=== PATIENT | female | born 1950 | race American Indian/Alaskan Native ===

== ENCOUNTER 2017-07-26 07:05 | Emergency (ER) | payer MEDICARE ==
[2017-07-26 08:21] LABS: Basophils % (Auto) 0.8 % (0.0-1.8); Eosinophils % (Auto) 0.9 % (0.0-4.3); Hematocrit 44.2 % (30.3-42.9); Hemoglobin 14.6 gm/dl (10.1-14.3); Lymphocytes # (Auto) 0.7 K/mm3 (1.2-5.4); Lymphocytes % (Auto) 13.8 % (13.4-35.0); Mean Corpuscular HGB Conc 33 % (30-34); Mean Corpuscular Hemoglobin 28 pg (28-32); Mean Corpuscular Volume 84 fl (79-97); Monocytes # (Auto) 0.7 K/mm3 (0.0-0.8); Monocytes % (Auto) 13.1 % (0.0-7.3); Platelet Count 156 K/mm3 (140-440); Red Blood Count 5.27 M/mm3 (3.65-5.03); Red Cell Distribution Width 15.7 % (13.2-15.2)
--- NOTE | 2017-07-26 08:30 | XRay Report ---
AP CHEST :07/26/17 07:43:00 CLINICAL: Cough. Upper respiratory infection. COMPARISON:03/11/05 FINDINGS: Stable mild cardiomegaly.Redistribution pulmonary blood flow to the upper lobes. Median sternotomy wires. Mild aortic tortuosity and moderate aortic calcification. The lungs are normally expanded and clear. The bones and soft tissues are normal. IMPRESSION: Mild cardiomegaly and pulmonary venous hypertension. No pulmonary edema and no pneumonia.
[2017-07-26 08:31] LABS: Alanine Aminotransferase 24 units/L (7-56); BUN/Creatinine Ratio 13; Blood Urea Nitrogen 10 mg/dL (7-17); Calcium 8.9 mg/dL (8.4-10.2); Hemolysis Index 9
[2017-07-26] MEDS ORDERED: ZITHROMAX PO ONE (10:36)
[2017-07-26] MEDS ORDERED: TESSALON PERLES PO ONE (10:36)
--- NOTE | 2017-07-26 11:14 | Emergency Department Report ---
- General Chief Complaint: Upper Respiratory Infection Stated Complaint: FAITH Time Seen by Provider: 07/26/17 09:33 Source: EMS Mode of arrival: Stretcher Limitations: No Limitations - History of Present Illness Initial Comments: 67-year-old female with a past medical history CHF, hypertension, aortic valve replacement, currently on Coumadin presents to the hospital complaints of cough 1 week. Cough is nonproductive. Patient complains of anterior chest pain and back pain with coughing episodes. Rated 8/10 in intensity. Patient denies fever, shortness of breath, or worsening leg edema. - Related Data Home Medications Medication Instructions Recorded Confirmed Last Taken Pantoprazole [Protonix TAB] 40 mg PO QDAY 04/29/13 03/10/15 03/10/15 Valsartan [Diovan] 320 mg PO QDAY 03/10/15 03/10/15 03/10/15 Previous Rx's Medication Instructions Recorded Last Taken Type Doxazosin [Cardura] 1 mg PO BID #60 tablet 04/30/13 03/10/15 Rx Warfarin [Coumadin] 7.5 mg PO DAILY@1700 #30 tablet 04/30/13 03/10/15 Rx hydrALAZINE [Apresoline TAB] 25 mg PO Q8HR #90 tablet 03/13/15 Unknown Rx Azithromycin [Zithromax Z-MICHAEL] 1 dose PO DAILY 5 Days tab 07/26/17 Unknown Rx Benzonatate [Tessalon Perles] 100 mg PO Q8HR PRN #30 capsule 07/26/17 Unknown Rx traMADol [Ultram 50 MG tab] 50 mg PO Q6HR PRN #20 tablet 07/26/17 Unknown Rx Allergies Allergy/AdvReac Type Severity Reaction Status Date / Time iodine Allergy Shortness Verified 03/10/15 20:04 of Breath shellfish derived Allergy Swelling Verified 04/29/13 08:55 ED Review of Systems ROS: Stated complaint: FAITH Other details as noted in HPI Comment: All other systems reviewed and negative Other: Constitutional: No fevers chills Eyes: No eye pain visual changes ENT: No ear pain or throat pain Neck: Denies pain Respiratory: Denies cough wheezing Cardiovascular: Denies palpitations, syncope GI: Denies abdominal pain : Denies dysuria Musculoskeletal: Denies back pain, joint swelling Skin: Denies rash, lesions, erythema Neurologic: Denies headache, numbness, weakness Psychiatric: Denies suicidal ideation, hallucinations ED Past Medical Hx - Past Medical History Hx Hypertension: Yes Hx Congestive Heart Failure: Yes Hx Diabetes: No Hx Asthma: No Hx COPD: No - Surgical History Past Surgical History?: Yes Additional Surgical History: aortic valve replacement. hysterectomy - Social History Smoking Status: Never Smoker Substance Use Type: Alcohol - Medications Home Medications: Home Medications Medication Instructions Recorded Confirmed Last Taken Type Pantoprazole [Protonix TAB] 40 mg PO QDAY 04/29/13 03/10/15 03/10/15 History Doxazosin [Cardura] 1 mg PO BID #60 tablet 04/30/13 03/10/15 03/10/15 Rx Warfarin [Coumadin] 7.5 mg PO DAILY@1700 #30 tablet 04/30/13 03/10/15 03/10/15 Rx Valsartan [Diovan] 320 mg PO QDAY 03/10/15 03/10/15 03/10/15 History hydrALAZINE [Apresoline TAB] 25 mg PO Q8HR #90 tablet 03/13/15 Unknown Rx Azithromycin [Zithromax Z-MICHAEL] 1 dose PO DAILY 5 Days tab 07/26/17 Unknown Rx Benzonatate [Tessalon Perles] 100 mg PO Q8HR PRN #30 capsule 07/26/17 Unknown Rx traMADol [Ultram 50 MG tab] 50 mg PO Q6HR PRN #20 tablet 07/26/17 Unknown Rx ED Physical Exam - General Limitations: No Limitations - Other Other exam information: General: No limitations, patient is alert in no acute distress Head exam: Atraumatic, normocephalic Eyes exam: Normal appearance ENT: Moist mucous membrane, normal oropharynx Neck exam: Normal inspection, full range of motion, no meningismus nontender Respiratory exam: Clear to auscultation bilateral, no wheezes, rales, crackles Cardiovascular: Normal rate and rhythm, positive systolic murmur Abdomen: Soft, nondistended, and nontender, with normal bowel sounds, no rebound, or guarding Extremity: Full range of motion normal inspection no deformity, no calf tenderness/edema Back: Normal Inspection, full range of motion, no tenderness Neurologic: Alert, oriented x3, cranial nerves intact, no motor or sensory deficit Psychiatric: normal affect, normal mood Skin: Warm, dry, intact ED Course Vital Signs 07/26/17 07:27 Temperature 98.9 F Pulse Rate 81 Respiratory 22 Rate Blood Pressure 131/76 Blood Pressure 131/76 [Left] O2 Sat by Pulse 100 Oximetry - Reevaluation(s) Reevaluation #1: 07/26/17 11:16 Patient given Tessalon Perles for cough and azithromycin. Declined medication for pain ED Medical Decision Making - Lab Data Result diagrams: 07/26/17 07:49 07/26/17 07:49 Lab Results 07/26/17 07/26/17 Range/Units 07:49 07:49 WBC 5.3 (4.5-11.0) K/mm3 RBC 5.27 H (3.65-5.03) M/mm3 Hgb 14.6 H (10.1-14.3) gm/dl Hct 44.2 H (30.3-42.9) % MCV 84 (79-97) fl MCH 28 (28-32) pg MCHC 33 (30-34) % RDW 15.7 H (13.2-15.2) % Plt Count 156 (140-440) K/mm3 Lymph % (Auto) 13.8 (13.4-35.0) % [place] % (Auto) 13.1 H (0.0-7.3) % Eos % (Auto) 0.9 (0.0-4.3) % Baso % (Auto) 0.8 (0.0-1.8) % Lymph # 0.7 L (1.2-5.4) K/mm3 [place] # 0.7 (0.0-0.8) K/mm3 Eos # 0.0 (0.0-0.4) K/mm3 Baso # 0.0 (0.0-0.1) K/mm3 Seg Neutrophils % 71.4 H (40.0-70.0) % Seg Neutrophils # 3.8 (1.8-7.7) K/mm3 Sodium 141 (137-145) mmol/L Potassium 4.1 (3.6-5.0) mmol/L Chloride 103.4 (98-107) mmol/L Carbon Dioxide 23 (22-30) mmol/L Anion Gap 19 mmol/L BUN 10 (7-17) mg/dL Creatinine 0.8 (0.7-1.2) mg/dL Estimated GFR > 60 ml/min BUN/Creatinine Ratio 13 % Glucose 111 H (65-100) mg/dL Calcium 8.9 (8.4-10.2) mg/dL Total Bilirubin 0.80 (0.1-1.2) mg/dL AST 25 (5-40) units/L ALT 24 (7-56) units/L Alkaline Phosphatase 64 (35-129) units/L Total Protein 6.5 (6.3-8.2) g/dL Albumin 4.0 (3.9-5) g/dL Albumin/Globulin Ratio 1.6 % - EKG Data -: EKG Interpreted by Tx EKG shows normal: sinus rhythm, axis (-60), QRS complexes (156), ST-T waves (no stemi/ LBBB) Rate: normal (62) - EKG Data When compared to previous EKG there are: no significant change - Radiology Data Radiology results: report reviewed (chest x-ray: Mild cardiomegaly and pulmonary venous congestion. No pneumonia) - Medical Decision Making Plan to discharge patient home with antibiotic and symptomatic treatment for bronchitis versus URI - Differential Diagnosis bronchitis, pneumonia, CHF Critical Care Time: No Critical care attestation.: If time is entered above; I have spent that time in minutes in the direct care of this critically ill patient, excluding procedure time. ED Disposition Clinical Impression: Acute bronchitis, Musculoskeletal pain Disposition: DC-01 TO HOME OR SELFCARE Is pt being admited?: No Does the pt Need Aspirin: No Condition: Stable Instructions: Acute Bronchitis (ED) Additional Instructions: Take the medications as prescribed. Return if symptoms worsen. Prescriptions: Azithromycin [Zithromax Z-MICHAEL] 1 dose PO DAILY 5 Days tab Benzonatate [Tessalon Perles] 100 mg PO Q8HR PRN #30 capsule PRN Reason: Cough traMADol [Ultram 50 MG tab] 50 mg PO Q6HR PRN #20 tablet PRN Reason: Pain Referrals: PRIMARY CARE, [Primary Care Provider] - 2-3 Days Time of Disposition: 11:39
[2017-07-26 12:13] VITALS: BP 158/122
== END 2017-07-26 12:33 | disposition home or self-care (01) ==
LOC: ED 07:05
DX: J20.9 Acute bronchitis, unspecified (principal); I11.0 Hypertensive heart disease with heart failure; I50.9 Heart failure, unspecified; Z88.8 Allergy status to other drugs, medicaments and biological substances; Z91.013 Allergy to seafood
CPT/HCPCS: 36415; 71010; 80053; 85025; 93005; 93010; 99284